=== PATIENT | male | born 1995 | race Caucasian/White ===

== ENCOUNTER 2016-09-04 23:48 | Emergency (ER) | payer OTHER ==
[~2016-09-04] VITALS: Ht 180.3 cm; Wt 67.3 kg
[2016-09-05] MEDS ORDERED: AUGMENTIN500 MG PO (00:20)
[2016-09-05 00:40] VITALS: BP 153/96
[2016-09-06] MEDS ORDERED: NORCO 5/3251 TABLET PO (04:52)
[2016-09-06] MEDS ORDERED: MOTRIN600 MG PO (04:52)
[2016-09-06] MEDS ORDERED: ZOFRAN4 MG PO (04:52)
== END 2016-09-05 00:59 | disposition home or self-care (01) ==
LOC: EME 23:48
DX: S60.221A Contusion of right hand, initial encounter (principal); Y04.0XXA Assault by unarmed brawl or fight, initial encounter; F17.200 Nicotine dependence, unspecified, uncomplicated
CPT/HCPCS: 73130; 99281; 99283

== ENCOUNTER 2016-09-06 02:03 | Emergency (ER) | payer OTHER ==
[~2016-09-06] VITALS: Ht 180.3 cm; Wt 75.0 kg
[~2016-09-06 02:03] MED LIST: AUGMENTIN500 MG PO
[2016-09-06 02:47] LABS: BASOPHIL COUNT 0.1 K/uL (0-0.1); EOSINOPHIL (%) 3.9 % (0-5); EOSINOPHIL COUNT 0.4 K/uL (0-0.3); HEMATOCRIT 40.9 % (38.0-50.0); IMMATURE GRANULOCYTE (%) 0.3 % (0.0-0.7); INSTRUMENT ABS NEUTROPHIL CT 6.2 K/uL; LYMPHOCYTE COUNT 2.6 K/uL (1.0-2.8); MCV 88.1 FL (86-99); MEAN PLAT.VOLUME 9.9 uM^3 (9.0-12.4); MONOCYTE (%) 9.1 % (3-12); MONOCYTE COUNT 0.9 K/uL (0-0.8); NEUTROPHIL (%) 60.9 % (45-76); NEUTROPHIL COUNT 6.2 K/uL (1.8-6.4); PLATELET COUNT 276 K/uL (156-360); RBC DIS.WIDTH-CV 12.6 % (11.8-14.6); RBC DIS.WIDTH-SD 40.6 % (39-53); RED BLOOD COUNT 4.64 M/uL (4.00-5.50); WHITE BLOOD COUNT 10.2 K/uL (4.1-10.2)
[2016-09-06 03:02] LABS: CHLORIDE 108 mEq/L (99-109); POTASSIUM 3.5 mEq/L (3.7-5.4)
[2016-09-06 03:03] LABS: SODIUM 142 mEq/L (136-147)
[2016-09-06 03:05] LABS: GLUCOSE 105 mg/dL (70-99)
[2016-09-06 03:06] LABS: ANION GAP 9 MEQ/L (2-14)
[2016-09-06 03:07] LABS: TOTAL BILIRUBIN 0.5 mg/dL (0.0-1.0)
[2016-09-06 03:08] LABS: ALKALINE PHOSPHATASE 52 IU/L (3-129); GFR ESTIMATE (CALCULATED) > 59 mL/min/
[2016-09-06 03:10] LABS: UREA NITROGEN (BUN) 12 mg/dL (9-23)
[2016-09-06 03:12] LABS: LIPASE 9 U/L (1.0-51.0)
[2016-09-06 04:26] LABS: ADD MIUA? YES; BILIRUBIN NEGATIVE; BLOOD LARGE; COLOR YELLOW ((YELLOW)); GLUCOSE (STRIP) NEGATIVE; KETONES NEGATIVE; LEUKOCYTES NEGATIVE; NITRITE NEGATIVE; PROTEIN (STRIP) 30; UROBILINOGEN 0.2 MG/DL (0.2-1.0)
[2016-09-06 04:29] LABS: BACTERIA NONE SEEN /HPF; EPITHELIAL CELLS NONE SEEN /HPF; MUCUS TRACE /LPF; RED BLOOD CELLS TNTC /HPF (0-5); UCUL ADDED? NO; WHITE BLOOD CELLS 0-5 /HPF (0-5)
[2016-09-06] MEDS ORDERED: MOTRIN600 MG PO (04:52)
[2016-09-06] MEDS ORDERED: ZOFRAN4 MG PO (04:52)
[2016-09-06] MEDS ORDERED: NORCO 5/3251 TABLET PO (04:52)
[2016-09-06 05:40] VITALS: BP 143/86
== END 2016-09-06 05:41 | disposition home or self-care (01) ==
LOC: EME 02:03
PROVIDERS: Emergency Medicine
DX: N20.1 Calculus of ureter (principal); F17.200 Nicotine dependence, unspecified, uncomplicated
CPT/HCPCS: 74177; 80053; 81003; 83690; 85025; 99281; 99284; J1885; J2405; J3010; J7030

== ENCOUNTER 2017-02-15 15:49 | Emergency (ER) | payer OTHER ==
[~2017-02-15] VITALS: Ht 177.8 cm; Wt 65.3 kg
[~2017-02-15 15:49] MED LIST changes: +MOTRIN600 MG PO; +NORCO 5/3251 TABLET PO; +ZOFRAN4 MG PO
[2017-02-15] MEDS ORDERED: FIORICET 50-301 EAC1 PO (17:06)
[2017-02-15] MEDS ORDERED: ANTIVERT25 MG PO (17:06)
[2017-02-15 17:16] VITALS: BP 136/89
== END 2017-02-15 17:17 | disposition left against medical advice (07) ==
LOC: EME 15:49
DX: S06.0X0A Concussion without loss of consciousness, initial encounter (principal); S00.83XA Contusion of other part of head, initial encounter; V49.50XA Passenger injured in collision with unspecified motor vehicles in traffic accident, initial encounter; Y92.410 Unspecified street and highway as the place of occurrence of the external cause; Z53.20 Procedure and treatment not carried out because of patient's decision for unspecified reasons; F17.200 Nicotine dependence, unspecified, uncomplicated
CPT/HCPCS: 99281; 99284